=== PATIENT | female | born 1970 | race Asian ===

== ENCOUNTER → 2023-07-07 16:39 | Outpatient (REF) | payer OTHER, SELFPAY | LOC: WDC 16:39 | PROVIDERS: ATTENDING PHYSICIAN Student in an Organized Health Care Education/Training Program; FAMILY PHYSICIAN Physician Assistant Medical | DX: Z12.31 Encounter for screening mammogram for malignant neoplasm of breast (principal) | CPT/HCPCS: 77063; 77067 ==

== ENCOUNTER → 2023-07-29 18:02 | Outpatient (REF) | payer OTHER, SELFPAY | LOC: RAD 18:02 | PROVIDERS: ATTENDING PHYSICIAN Family Medicine | DX: Q74.1 Congenital malformation of knee (principal); M79.89 Other specified soft tissue disorders | CPT/HCPCS: 73564; 73660 ==

== ENCOUNTER → 2025-05-12 10:26 | Outpatient (REF) | payer OTHER, SELFPAY | LOC: RAD 10:26 | PROVIDERS: ATTENDING PHYSICIAN Obstetrics & Gynecology; FAMILY PHYSICIAN Family Medicine | DX: N95.0 Postmenopausal bleeding (principal) | CPT/HCPCS: 76830; 76856 ==